=== PATIENT | male | born 1960 | race Caucasian/White ===

== ENCOUNTER → 2021-06-06 | Outpatient (CLI) | payer BC | END | disposition home or self-care (01) | LOC: LAB 11:16 → LAB SHORT 11:16 | DX: C44.529 Squamous cell carcinoma of skin of other part of trunk (principal) | CPT/HCPCS: 88305 ==

== ENCOUNTER 2021-11-17 06:02 | Day surgery (SDC) | payer BC ==
[~2021-11-17] VITALS: Ht 172.7 cm; Wt 95.7 kg
[~2021-11-17 06:02] MED LIST: ACET500 PO; HYDCHL25 PO; OLME20 PO; SENN187 PO
--- NOTE | 2021-11-17 07:17 | NUR ---
Ambulatory in Day Surgery. History, Chart, Medications and Allergies reviewed before start of procedure. Lungs clear T/O to Auscultation. Patient confirms NPO status and agrees with scheduled surgery. Pre-Op teaching done. Pt verbalizes understanding. Patient States Post-Procedure ride home has been arranged.
--- NOTE | 2021-11-17 10:57 | NUR ---
1017 TO STEP AWAKE, ABDOMINAL BINDER ON, ICE PACK GIVEN. ABD AND INGUINAL DRESSINGD&I. DENIES MUCH PAIN NO NAUSEA. VSS. SATS FREQUENTLY DROP TO LOW 80'S AND WITH SOME DEEP BREATHS SATS QUICKLY COME UP TO MID 90'S. FACE AND LIP COLOR PINK. NO APPERANCE OF DISTRESS. INCENTIVE SPIROMETER GIVEN. PATIENT USES WELL. 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 ENCOURAGINF IS AND COUGHING NEEDED. STATES THIS IS WHAT HAPPENED AFTED PROSTATE SURGERY. INFORMED DR BANEGAS OF PT SATS FREQUENTLY DROPPING AND RISING WITH DEEP BREATHIN AND IS USE.
--- NOTE | 2021-11-17 11:07 | NUR ---
RECEIVED REPORT FROM KRUNAL BRANCH RN. PT RESTING COMFORTABLY IN BED, TOLERATING PO FLUIDS AND FOOD, ABLE TO REPOSITION SELF IN BED.
--- NOTE | 2021-11-17 11:21 | NUR ---
PT AMBULATED IN STEPDOWN UNIT WITH STEADY GAIT ABOUT 15 FEET BACK AND FORTH FROM BED. PT WAS UNABLE TO TOLERATE WELL PER OXYGEN SATURATION LEVEL. LEVEL DROPPED TO MID 80'S. PT PUT ON 2 L O2 AND NOW SUSTAINING O2 LEVEL OF 100%. PT'S LUNGS ARE CLEAR BILATTERALLY TO AUSCULTATION. PT INSTRUCTED TO DEEP BREATH, ELEVATED HEAD OF BED, AND INSTRUCTED TO TRY TO COUGH.
--- NOTE | 2021-11-17 11:29 | NUR ---
PT AXOX4, ABLE TO REPOSITION SELF IN BED, VISITING WITH AT BEDSIDE, OXYGEN MAINTAINING AT 100% ON 2L/MIN OXYGEN NASAL CANNULA.
--- NOTE | 2021-11-17 12:01 | NUR ---
DR. BANEGAS VISITED WITH PATIENT AT BEDSIDE AND ORDERED A UPDRAFT NEBULIZER TREATMENT AND CONTINUED MONITORING. PATIENT AXOX4, RESTING COMFORTABLY IN BED.
--- NOTE | 2021-11-17 12:09 | NUR ---
PT FINISHED NEBULIZER BREATHING TREATMENT AND IS RESTING IN BED. DR. BANEGAS UPDATED WITH PATIENT'S STATUS AND CONSULTED. I WILL CONTINUE TO MONITOR PATIENT'S OXYGEN SATURATION. WHEN PATIENT IS ABLE TO MAINTAIN ABOVE 92% SITTING UP RIGHT IN BED, HE WILL DO A TRIAL 10 FOOT WALK IN DAY SURGERY TO SEE HOW HE TOLERATES AMBULATING.
--- NOTE | 2021-11-17 12:34 | NUR ---
PT AXOX4, SKIN COLOR IS PINK AND DRY, HE IS ABLE TO REPOSITION SELF IN BED. PT IS MAINTAINING OXYGEN SATURATION LEVELS IN THE MID 90'S WITH OCCASSIONAL DROPS TO LOW 90'S THAT LAST 1-2 SECONDS BEFORE RETURNING TO MID 90%. PT IS SHALLOW BREATHING. WHEN QUESTIONED IF HE IS TRYING NOT TO DEEP BREATH IN ORDER TO NO CAUSE HIMSELF PAIN, HE ADMITTED THAT HE IS BEING CAUTIOUS TO AVOID SHARP PAINS AND SAYS HE IS A SHALLOW BREATHING/BREATH HOLDING ON A REGULAR BASIS. PT INSTRUCTED TO DEEP BREATH, SHOWN HOW TO PRACTICE AND ASKED FOR THE PT TO DEMONSTRATE BACK DEEP BREATHING EXERCISES. PT IS COMPLIANT AND OXYGEN SATURATION LEVELS ARE INCREASES WHEN DONE SO. PT REQUESTING TO GO HOME.
--- NOTE | 2021-11-17 12:54 | NUR ---
PT HAS TWO INCISION SITES, ONE OVER UMBILICUS THAT IS COVERED WITH GAUZE AND WINDOW TAPE, ONE OVER RIGHT INGUINAL AREA THAT IS COVERED IN 4 INCHES OF GAUZE AND WINDOW TAPE. DRESSINGS ARE CLEAN, DRY AND INTACT. NO SWELLING, REDNESS, INFLAMATION, DRAINAGE NOTED. PT SITTING ON EDGE OF BED, MAINTAINING O2 LEVELS IN MID 90'S. PT WAS ABLE TO WALK TO BATHROOM OF SDS UNIT WITH NO COMPLICATIONS, NO DIZZINESS AND IS AXOX4.
--- NOTE | 2021-11-17 13:09 | NUR ---
Patient up to Ambulate independently. Gait steady. Discharge instructions reviewed with patient. Patient verbalizes understanding. Copy given to patient to take home. DressingS to procedure site clean, dry, intact with no visible drainage, swelling, erythema or bruising noted. Lungs clear T/O to Auscultation, OXYGEN SATURATION MAINTAINING MID 90'S AND ABOVE. Patient States Post-Procedure ride home has been arranged. Discharged via wheelchair to private car for ride home. ALL BELONGINGS RETURNED TO PATIENT.
== END 2021-11-17 23:00 | disposition home or self-care (01) ==
LOC: ORSCMMR 06:02 → ORD 07:30 → ORSCMMR 07:30
PROVIDERS: Surgery
PROC: 0YU60JZ Supplement Left Inguinal Region with Synthetic Substitute, Open Approach (ICD-10-PCS; principal; 2021-11-17 07:30)
PROC: 0WUF0JZ Supplement Abdominal Wall with Synthetic Substitute, Open Approach (ICD-10-PCS; principal; 2021-11-17 07:30)
DX: K40.90 Unilateral inguinal hernia, without obstruction or gangrene, not specified as recurrent (principal); K42.9 Umbilical hernia without obstruction or gangrene; I10 Essential (primary) hypertension; K21.9 Gastro-esophageal reflux disease without esophagitis; E66.9 Obesity, unspecified; Z68.32 Body mass index [BMI] 32.0-32.9, adult; Z79.899 Other long term (current) drug therapy
CPT/HCPCS: A9270; C1781; J0690; J1100; J1885; J2370; J2405; J2704; J2710; J3010; J7120